=== PATIENT | male | born 1955 | race African-American/Black ===

== ENCOUNTER → 2016-10-01 | Outpatient (CLI) | payer BC ==
--- NOTE | ~2016-10-01 | CT2 ---
[facility] A Service of [facility] RADIOLOGY TEXT RESULTS PATIENT: ISABELA RILEY [facility] UNIT #: [id number] AGE: [address]: Elijah Oliva MD SEX: M ORDER DR: [id number] [facility] [address] [place], [place] [address] [id number] O MR#: [id number] Acc #: [id number] NAME: ISABELA RILEY : 1955 SEX: M STUDY DATE/TIME: 10/01/2016 12:02 UNIT: [facility] ROOM: STUDY DESCRIPTION: CT Abd and Pelv W Cont Attending Physician: Elijah Oliva M.D. Referring Physician: Elijah Oliva M.D. Ordering Physician: Elijah Oliva M.D. Primary Care Physician: Je Carpenter Aprn MEDICAL IMAGING REPORT This report is preliminary unless electronic signature is present EXAM CT abdomen and pelvis with contrast. INDICATION Newly diagnosed prostate cancer. Observation for extent of disease and metastatic disease. PROCEDURE Contrast-enhanced CT abdomen and pelvis. This CT exam was performed with one or more of the following radiation dose reduction techniques: automatic exposure control, adjustment of mA and/or kV according to patient size, and iterative reconstruction. COMPARISON None FINDINGS The included lung bases are clear. The liver, spleen, adrenal glands, pancreas, and gallbladder are unremarkable. 2.1 cm cyst in the right kidney. Bowel loops are nondilated. Appendix is normal. No abdominal adenopathy. PELVIS WITH CONTRAST: Prostate gland measures 5 cm. No obvious extracapsular extension on CT. No pelvic adenopathy. No aggressive appearing bone lesion. IMPRESSION 1. Prostate measures [address] evidence for extracapsular extension. 2. No definitive evidence for metastatic disease in the abdomen or pelvis. [facility] A Service of [facility] RADIOLOGY TEXT RESULTS PATIENT: ISABELA RILEY [facility] 51 UNIT #: [id number] AGE: [address]: Elijah Oliva MD SEX: M ORDER DR: Dictated by... Kwame Gaffney M.D. THIS IS AN ELECTRONICALLY VERIFIED REPORT Kwame Gaffney M.D. at 10/02/2016 10:46 AM ROSALIAD/jose TD: 10/01/2016 14:25 JOB #: [id number] MEDICAL IMAGING REPORT Page 1 of 1 COPY
[2016-10-01 12:36] LABS: POC - CREATININE 1.33 mg/dL (0.64-1.27); POC - GFR >60.0 mL/min (>60)
== END | disposition home or self-care (01) ==
LOC: CCAT 10:53
PROVIDERS: Urology
DX: C61 Malignant neoplasm of prostate (principal)
CPT/HCPCS: 74177; 82565; Q9967

== ENCOUNTER → 2016-10-06 | Outpatient (CLI) | payer BC ==
--- NOTE | ~2016-10-06 | NM8 ---
[facility] A Service of [facility] & [facility] RADIOLOGY TEXT RESULTS PATIENT: ISABELA RILEY LOCATION: [facility] : 51 UNIT #: [id number] AGE: [address]: Elijah Oliva MD SEX: M ORDER DR: [id number] [facility] [address] [place], [place] [address] [id number] O MR#: [id number] Acc #: [id number] NAME: ISABELA RILEY : 1955 SEX: M STUDY DATE/TIME: 10/06/2016 11:07 UNIT: [facility] ROOM: STUDY DESCRIPTION: DC Bone or Joint Whole Body Attending Physician: Eljiah Oliva M.D. Referring Physician: Elijah Oliva M.D. Ordering Physician: Elijah Oliva M.D. Primary Care Physician: Je Carpenter Aprn MEDICAL IMAGING REPORT This report is preliminary unless electronic signature is present EXAM Whole-body bone scan HISTORY 61-year-old male newly diagnosed prostate cancer diagnosed September 29, 2016. Patient presents for initial staging. COMPARISON CT abdomen and pelvis, 10/01/2016 FINDINGS Whole-body and selected spot images were performed of the axial and appendicular skeleton following the intravenous administration of 30 mCi technetium 99m MDP. The examination demonstrates increased uptake in the patellofemoral joints bilaterally as well as some increased uptake within the proximal right tibia. Findings most likely indicative of underlying degenerative change. Degenerative uptake noted within the hands. There is a focal area of increased uptake in the left infraorbital region may be related to prior trauma. No abnormal uptake identified within the long bones, pelvis ribs or spine to suggest osseous metastatic disease. Bilateral renal activity and normal bladder activity noted. IMPRESSION 1. No bone scan findings to strongly suggest osseous metastatic disease. 2. Increased uptake in the left infraorbital region and left lateral orbital region may be related to prior trauma. Correlate clinically. Degenerative uptake noted within the knees and hands. Dictated by... Marybel Hoyt M.D. THIS IS AN ELECTRONICALLY VERIFIED REPORT Marybel Hoyt M.D. at 10/07/2016 3:[address] [facility] A Service of [facility] & [facility] RADIOLOGY TEXT RESULTS PATIENT: ISABELA RILEY LOCATION: [facility] : 51 UNIT #: [id number] AGE: [address]: Elijah Oliva MD SEX: M ORDER DR: Miguelito TD: 10/07/2016 11:39 JOB #: [id number] MEDICAL IMAGING REPORT Page 1 of 1 COPY
== END | disposition home or self-care (01) ==
LOC: CNUC 07:21
DX: C61 Malignant neoplasm of prostate (principal)
CPT/HCPCS: 78306; A9503